=== PATIENT | male | born 1960 | race Caucasian/White ===

== ENCOUNTER 2019-02-26 15:23 | Inpatient (IN) ==
[2019-02-26] MEDS ORDERED: NORMAL SALINE 1,000 ML IV ONE ×2 (15:44→16:44)
--- NOTE | 2019-02-26 15:52 | ERNOTE ---
Dizziness ER Record Date of Service: 02/26/19 Presenting Symptoms: near-fainting, other - hypotension Time Seen by Provider: 02/26/19 15:30 Source: patient, family Exam Limitations: no limitations Immunizations: IMMUNIZATION HX Immunizations Up to Date Yes History of Influenza Vaccine No Hx Pneumococcal Vaccination No Allergies/Adverse Reactions: Allergies Allergy/AdvReac Type Severity Reaction Status Date / Time No Known Allergies Allergy Verified 02/26/19 14:58 Home Medications: HOME MEDICATIONS Levothyroxine Sodium [Synthroid] 137 mcg PO DAILY 04/25/15 [Last Taken Unknown] benzonatate 200 mg capsule 200 mg PO TID PRN #15 cap 02/25/19 [Last Taken Unknown] prednisone 20 mg tablet 40 mg PO DAILY 5 Days #10 tab 02/25/19 [Last Taken Unknown] - History of Present Illness Narrative: Patient reports 10 days ago he was diagnosed with influenza and took about 2 days of tamiflu and then stopped taking due to hallucinations. Since that time he has felt weak, puny with a low blood pressure. Has been back to the clinic and they did not find anything acute. Today around 1100 he had fever/chills with dizziness. Tried to drink some water and then vomited. After work he continually felt very weak so came to the ER for evaluation. Date (Duration): 02/16/19 Timing and Duration: still present Episodes lasting:: 10 days Severity: max: severe Severity: currently: moderate Associated Symptoms: Present: nausea, vomiting, light headedness Decreased ability to stand/walk:: Present: weak Usually:: Present: walks w/o assistance Modifying Factors - (Improves): Reports: nothing Modifying Factors - (Worsens): Reports: standing position Prior Treament: Reports: recently seen, treated by physician, similar symptoms before Review of Systems - Review of Systems Constitutional: Present: fever, chills, weakness, fatigue, decreased activity level EYE: Present: no symptoms reported ENT: Present: no symptoms reported Respiratory: Present: no symptoms reported Cardiology: Present: no symptoms reported Gastrointestinal/Abdominal: Present: nausea, vomiting. Absent: abdominal pain Genitourinary: Present: no symptoms reported Musculoskeletal: Present: other - body aches. Skin: Present: no symptoms reported Neurological: Present: dizziness/light-headedness, weakness. Absent: headache Endocrine: Present: no symptoms reported Hematologic/Lymphatic: Present: no symptoms reported Psych: Present: no symptoms reported Medical History (Updated 02/17/19 @ 16:34 by Mary Hector RN) Back pain Onset Date: Unknown Colonic polyp Onset Date: 2008 Familial adenomatous polyposis Onset Date: 07/07/15 Hyperlipidemia Onset Date: 04/06/11 Hypothyroidism Onset Date: 07/07/15 Hemorrhoids Onset Date: Unknown internal History of thyroid cancer Onset Date: 07/07/15 Surgical History: Surgical History (Updated 02/17/19 @ 16:34 by Mary Hector RN) H/O endoscopy Onset Date: 06/2015 H/O flexible sigmoidoscopy Onset Date: 06/2015 H/O thyroidectomy Onset Date: 06/23/14 [facility] History of colectomy Onset Date: 07/07/15 History of colon surgery Onset Date: 08/2011 Hx of appendectomy Onset Date: 1998 colonoscopy with hot biopsy Onset Date: 07/01/15 05/04/10 Family History: Family History (Updated 02/17/19 @ 16:47 by Mary Hector RN) Mother Diabetes Benign polyp of large intestine Father Hypertension Social History: Preferred Language Yoruba Smoking Status Never smoker Alcohol Use sober Drug Use none (Last Updated 02/25/19 @ 11:07 by Kalli Rogel DNP) No Social History Section defined Physical Exam - Physical Exam General Appearance: Present: wd/wn, alert Head Exam: Present: normal inspection, no evidence of injury Eye Exam: Normal inspection: bilateral, PERRL: bilateral, EOMI: bilateral Ears, Nose, Throat: Present: normal ENT inspection, normal pharynx, dry mucous membranes Neck: Present: normal inspection, nontender, supple. Absent: carotid bruit Respiratory: Present: no respiratory distress, normal breath sounds, no accessory muscle use, lungs clear Cardiovascular/Chest: Present: regular rate, rhythm, systolic murmur Peripheral Pulses: N=norm/S=strong/W=weak/B=bound/A=absent: Radial (R): Normal, Radial (L): Normal, Dorsalis-pedis (R): Normal, Dorsalis-pedis (L): Normal Gastrointestinal/Abdominal: Present: normal bowel sounds, nontender, nondistended, soft, no organomegaly Back Exam: Present: no CVA tenderness, no vertebral tenderness Extremity Exam: Present: non-tender, normal range of motion, no edema Neurological Exam: Present: alert, oriented, normal mood/affect, no motor/sensory deficits Skin Exam: Present: normal color, warm/dry Progress - Results and Orders Patient's Lab Results:: I have reviewed the patient's lab results. - Vital Signs Patient's Vital Signs:: I have reviewed the patient's vital signs. Vital Signs: Vital Signs 02/26/19 15:23 Temperature 38.0 C Pulse Rate 87 Respiratory Rate 20 Blood Pressure 89/52 L O2 Sat by Pulse Oximetry 98 - EKG EKG #1 EKG: NSR EKG read: Interp. by me - X-Ray X-Ray #1 X-Ray: chest - LLL consolidation. Interpretation: Interp. by me - Progress/Reassessment Chief Complaint: Dizziness Progress:: Improved - Transfer of Care Additional Notes: Discussed patient with Dr. Paredes who agrees with admit. Suggested inpatient due to hypotension with complications from influenza. Will treat with levaquin renal dosed daily. Patient did receive cefepime 2 gm IV before we changed our antibiotic regimen. Departure Clinical Impression: Pneumonia and influenza, Neutrophilic leukocytosis Hypotension Qualifiers: Hypotension type: unspecified hypotension type Qualified Code(s): I95.9 - Hypotension, unspecified - Departure Disposition: Still a patient Condition: Stable Referrals: Sha Steven MD [Primary Care Provider] -
[2019-02-26 16:05] LABS: Hematocrit 33.7 % (42.0-52.0); Hemoglobin 11.5 gm/dL (13.5-18.0); Mean Cell Volume 91.6 fl (78-100); Mean Corpuscular Hemoglobin 31.3 pg (27-31); Mean Corpuscular Hgb Conc 34.1 g/dl (32-36); Mean Platelet Volume 10.3 fl (8-11.3); Neutrophil # 16.9 K/mm3 (1.3-6.0); Neutrophil % 87.8 % (42-75.0); Platelet Count 311 K/mm3 (150-450); Red Blood Count 3.68 M/mm3 (4.7-6.0); Red Cell Distribution Width 12.1 % (11.5-14.0); White Blood Count 19.3 K/mm3 (4.0-10.5)
[2019-02-26 16:21] LABS: ALT 60 U/L (19-67); AST 29 U/L (0-48); Albumin * 2.7 gm/dl (3.4-5.0); Alkaline Phosphatase * 125 U/L (50-170); Anion Gap 14.9 mmol/L (6.8-13.8); BUN/Creatinine Ratio 18.3 (9.0-21.6); Bilirubin, Total 0.5 mg/dL (0.0-1.1); Blood Urea Nitrogen 31 mg/dL (6-23); Ca. Corrected For Albumin 9.4 mg/dL (8.4-10.2); Calcium * 8.7 mg/dL (7.9-10.9); Carbon Dioxide 23.6 mmol/L (24-32.6); Chloride 99 mmol/L (97-106); Glucose * 113 mg/dL (70-110); Potassium 3.5 mmol/L (3.4-4.6); Sodium 134 mmol/L (132-142); TSH * 2.778 uIU/mL (0.358-3.74); Total Protein 6.4 gm/dL (6.2-8.2)
[2019-02-26 16:22] LABS: Troponin I Less than 0.017 ng/mL (0.00-0.10)
[2019-02-26] MEDS ORDERED: ACETAMINOPHEN 325 MG TABLET PO ONE (16:59)
[2019-02-26] MEDS ORDERED: CEFEPIME HCL 1 GM/100 ML BAG IV ONE ×2 (17:23→18:00)
[2019-02-26] MEDS ORDERED: VANCOMYCIN HCL 1 GM in DEXTROSE 5 % IN WATER 250 ML IV ONE ×2 (17:24)
[2019-02-26] MEDS ORDERED: ONDANSETRON HCL/PF 2 MG/ML VIAL IV PRN (17:35)
[2019-02-26] MEDS ORDERED: LEVOFLOXACIN IN DEXTROSE 5 % 500 MG/100 ML BAG IV SCH (17:45)
[2019-02-26] MEDS ORDERED: CEFEPIME HCL 2 GM in DEXTROSE 5 % IN WATER 100 ML IV SCH ×2 (18:00)
[2019-02-26] MEDS ORDERED: NORMAL SALINE 1,000 ML IV PRN ×2 (18:48→19:35)
[2019-02-26 19:15] LABS: Urine Bilirubin Negative (NEGATIVE); Urine Blood Negative /ul (NEGATIVE); Urine Ketone Negative (NEGATIVE); Urine Nitrite Negative (NEGATIVE); Urine Protein Negative (NEGATIVE); Urine Specific Gravity <=1.005 SP.GR. (1.005-1.030); Urine Urobilinogen Normal (NORMAL); Urine pH 5.5 pH (5.0-7.0)
[2019-02-26 19:31] LABS: Urine Appearance Clear (CLEAR); Urine Color Yellow; Urine RBC None Seen /hpf (0-5); Urine WBC None Seen /hpf (0-5)
[2019-02-26 19:32] LABS: Urine Bacteria 1+; Urine Fine Granular Cast TRACE /LPF; Urine Hyaline Cast TRACE /LPF
--- NOTE | 2019-02-26 19:35 | HP ---
Chief Complaint - Chief Complaint Date of Service: 02/26/19 Time of Service: 19:14 Chief Complaint: I have got cough fever and chills for over a week History of Present Illness: 58-year-old male with past medical history of familial adenomatous polyposis, thyroid cancer, hyperlipidemia, hypothyroidism, and hemorrhoids was evaluated in our ER for worsening productive cough accompanied by fever, chills, and generalized weakness of several days' duration. Patient reports that he has been feeling ill for more than 10 days and was evaluated in our clinic by his primary care doctor who diagnosed him with influenza and prescribed Tamiflu which the patient did not complete due to side effects such as hallucinations and inability to fall asleep. However patient reports that his symptoms of fever cough and chills worsened and he eventually became weak and unable to tolerate liquids and solids by mouth. Patient reports an episode of fever this past Sunday greater than 103 degrees and several episodes of nonbloody vomiting throughout the past several days. This morning patient attempted to return to work but once he arrived he felt severely weak and started having chills that required him to wear his coat in front of an electric heater. He then attempted to eat his lunch and to hydrate himself orally but vomited, he subsequently became very dizzy. Patient then called his and told her to come pick him up to take him to the hospital. Medical History (Updated 02/26/19 @ 17:41 by DILIA Brown) Back pain Onset Date: Unknown Colonic polyp Onset Date: 2008 Familial adenomatous polyposis Onset Date: 07/07/15 Hyperlipidemia Onset Date: 04/06/11 Hypothyroidism Onset Date: 07/07/15 Hemorrhoids Onset Date: Unknown internal History of thyroid cancer Onset Date: 07/07/15 Surgical History: Surgical History (Updated 02/17/19 @ 16:34 by Mary Hector RN) H/O endoscopy Onset Date: 06/2015 H/O flexible sigmoidoscopy Onset Date: 06/2015 H/O thyroidectomy Onset Date: 06/23/14 [facility] History of colectomy Onset Date: 07/07/15 History of colon surgery Onset Date: 08/2011 Hx of appendectomy Onset Date: 1998 colonoscopy with hot biopsy Onset Date: 07/01/15 05/04/10 Family History: Family History (Updated 02/17/19 @ 16:47 by Mary Hector RN) Mother Diabetes Benign polyp of large intestine Father Hypertension Social History: Patient Lives/Resources Home Utilized 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 Smoking Status Never smoker Have you smoked in the past 12 No months Do you dip or chew tobacco No Alcohol Use sober Drug Use none (Last Updated 02/25/19 @ 11:07 by Kalli Rogel DNP) No Social History Section defined Review Of Systems (GEN) - Review of Systems Generalized/Overall Review: Present: Weakness, Chills, Fever, Malaise, Fatigue EENTM: Present: No Symptoms Reported Respiratory: Present: Cough - Productive cough of brownish then whitish milky sputum Cardiac: Present: No Symptoms Reported Abdominal: Present: No Symptoms Reported Genitourinary: Present: No Symptoms Reported Musculoskeletal: Present: No Symptoms Reported Neurological: Present: No Symptoms Reported Skin: Present: Rash - Scattered nonerythematous maculopapular rash on back Endocrine: Present: No Symptoms Reported Immunizations: IMMUNIZATION HX Immunizations Up to Date Yes History of Influenza Vaccine No Hx Pneumococcal Vaccination No Allergies/Adverse Reactions: Allergies Allergy/AdvReac Type Severity Reaction Status Date / Time No Known Allergies Allergy Verified 02/26/19 14:58 Home Medications: HOME MEDICATIONS Levothyroxine Sodium [Synthroid] 137 mcg PO DAILY 04/25/15 [Last Taken Unknown] benzonatate 200 mg capsule 200 mg PO TID PRN #15 cap 02/25/19 [Last Taken Unknown] prednisone 20 mg tablet 40 mg PO DAILY 5 Days #10 tab 02/25/19 [Last Taken Unknown] Exam - Exam Vital Signs: Vital Signs - Last Taken Temp 37.4 C 02/26/19 18:21 Pulse 95 02/26/19 18:21 Resp 16 02/26/19 18:21 BP 111/65 02/26/19 18:21 Pulse Ox 95 02/26/19 18:21 Constitutional: Present: Alert, Oriented x3, Cooperative, Well developed, Well nourished, No distress, Middle aged ENT Exam: Present: normal ENT inspection, hearing grossly normal, pharynx normal, TMs normal Eye Exam: bilateral eye: normal inspection, PERRL, EOMI Neck: Present: non-tender, full range of motion, supple, normal inspection, trachea midline Back Exam: Present: normal inspection, no CVA tenderness, no vertebral tenderness Breasts: Present: Exam deferred Respiratory: Present: no respiratory distress, decreased breath sounds - Decr eased breath sounds on left lower lobe Cardiovascular/Chest: Present: normal peripheral pulses, regular rate, rhythm, no chest tenderness, no edema, no gallop, no JVD, no murmur, no rub Peripheral Pulses: carotid (R): 4+, carotid (L): 4+, femoral (R): 4+, femoral (L): 4+, dorsalis-pedis (R): 4+, dorsalis-pedis (L): 4+ Abdomen: Present: Normal bowel sounds, soft, nontender, nondistended, no rebound tenderness, no hepatospenomegaly, no masses /Rectal: Present: Exam deferred Extremity: Present: normal range of motion, non-tender, normal inspection, no pedal edema, no calf tenderness, normal capillary refill, pelvis stable Skin Exam: Present: skin rash - Nonerythematous maculopapular rash on back Lymphatic: Present: no adenopathy Neurologic: Present: molder machine II-XII nml as tested, normal cerebellar test, no motor/sensory deficits, alert, normal mood/affect, oriented x 3 Appearance: Present: appropriate appearance, appropriate insight, neat, no memory impairment Eye contact: Present: cooperative Thoughts: Present: normal thought pattern, no apparent hallucination Diagnostic Studies: Abnormal Lab Results 02/26/19 02/26/19 Range/Units 15:50 15:50 WBC 19.3 H (4.0-10.5) K/mm3 RBC 3.68 L (4.7-6.0) M/mm3 Hgb 11.5 L (13.5-18.0) gm/dL Hct 33.7 L (42.0-52.0) % MCH 31.3 H (27-31) pg Immature Gran % (Auto) 1.50 H (0.001-0.429) % Immature Gran # (Auto) 0.29 H (0.000-0.0310) K/mm3 Neutrophils % 87.8 H (42-75.0) % Lymphocytes % 5.0 L (20-51) % Neutrophils # 16.9 H (1.3-6.0) K/mm3 Lymphocytes # 0.96 L (1.5-3.5) k/mm3 Monocytes # 1.1 H (0.0-1.0) k/mm3 Carbon Dioxide 23.6 L (24-32.6) mmol/L Anion Gap 14.9 H (6.8-13.8) mmol/L BUN 31 H (6-23) mg/dL Creatinine 1.69 H (0.4-1.4) mg/dL Est GFR (Non-Af Amer) 44 L (60-130) mL/min Random Glucose 113 H (70-110) mg/dL Albumin 2.7 L (3.4-5.0) gm/dl Laboratory Results WBC 19.3 K/mm3 (4.0-10.5) H 02/26/19 15:50 RBC 3.68 M/mm3 (4.7-6.0) L 02/26/19 15:50 Hgb 11.5 gm/dL (13.5-18.0) L 02/26/19 15:50 Hct 33.7 % (42.0-52.0) L 02/26/19 15:50 MCV 91.6 fl (78-100) 02/26/19 15:50 MCH 31.3 pg (27-31) H 02/26/19 15:50 MCHC 34.1 g/dl (32-36) 02/26/19 15:50 RDW 12.1 % (11.5-14.0) 02/26/19 15:50 Plt Count 311 K/mm3 (150-450) 02/26/19 15:50 MPV 10.3 fl (8-11.3) 02/26/19 15:50 Immature Gran % (Auto) 1.50 % (0.001-0.429) H 02/26/19 15:50 Immature Gran # (Auto) 0.29 K/mm3 (0.000-0.0310) H 02/26/19 15:50 87.8 % (42-75.0) H 02/26/19 15:50 5.0 % (20-51) L 02/26/19 15:50 5.5 % (0.0-9) 02/26/19 15:50 0.1 % (0.0-3.0) 02/26/19 15:50 0.1 % (0.0-1.0) 02/26/19 15:50 Nucleated RBC % 0.0 k/mm3 (0-1) 02/26/19 15:50 16.9 K/mm3 (1.3-6.0) H 02/26/19 15:50 0.96 k/mm3 (1.5-3.5) L 02/26/19 15:50 1.1 k/mm3 (0.0-1.0) H 02/26/19 15:50 0.0 k/mm3 (0.0-0.7) 02/26/19 15:50 Absolute Basophils 0.0 k/mm3 (0.0-0.1) 02/26/19 15:50 Sodium 134 mmol/L (132-142) 02/26/19 15:50 134 mmol/L (130-142) 02/26/19 15:50 Potassium 3.5 mmol/L (3.4-4.6) 02/26/19 15:50 Chloride 99 mmol/L (97-106) 02/26/19 15:50 Carbon Dioxide 23.6 mmol/L (24-32.6) L 02/26/19 15:50 14.9 mmol/L (6.8-13.8) H 02/26/19 15:50 BUN 31 mg/dL (6-23) H 02/26/19 15:50 1.69 mg/dL (0.4-1.4) H 02/26/19 15:50 Est GFR (Non-Af Amer) 44 mL/min (60-130) L 02/26/19 15:50 18.3 (9.0-21.6) 02/26/19 15:50 113 mg/dL (70-110) H 02/26/19 15:50 1.4 mmol/L (0.4-2.0) 02/26/19 15:50 Calcium 8.7 mg/dL (7.9-10.9) 02/26/19 15:50 Calcium Adj for Albumin 9.4 mg/dL (8.4-10.2) 02/26/19 15:50 0.5 mg/dL (0.0-1.1) 02/26/19 15:50 AST 29 U/L (0-48) 02/26/19 15:50 ALT 60 U/L (19-67) 02/26/19 15:50 125 U/L (50-170) 02/26/19 15:50 Less than 0.017 ng/mL (0.00-0.10) 02/26/19 15:50 6.4 gm/dL (6.2-8.2) 02/26/19 15:50 2.7 gm/dl (3.4-5.0) L 02/26/19 15:50 TSH 2.778 uIU/mL (0.358-3.74) 02/26/19 15:50 Assessment/Plan - Narrative Narrative: Patient was evaluated at bedside in medical chart was reviewed and decision to admit to inpatient medical surgical floor with a diagnosis of left-sided multifocal community-acquired pneumonia with dehydration was taken. Patient was found to be hypotensive requiring multiple IV boluses of IV fluid to sustain blood pressure, and was also found to have signs and symptoms of dehydration likely secondary to his poor oral intake over the past several days and multiple episodes of vomiting. Therefore we will continue to hydrate him intravenously. Patient was also found to have a leukocytosis with a left shift on labs so we will treat him with IV antibiotics to cover him for community-acquired pneumonia. All necessary cultures were ordered which include blood urine and sputum. Patient was administered acetaminophen for fever and has antitussives ordered for his cough. He was also prescribed oral steroids for a nonpruritic maculopapular rash on his back, therefore we will continue a course of steroids during his hospital stay. - Assessment/Plan (1) Multifocal pneumonia Problem: Acute (2) Dehydration, moderate Problem: Acute (3) Decreased oral intake Problem: Acute (4) Community acquired pneumonia Problem: Acute (5) TOYA (acute kidney injury) Problem: Acute
[2019-02-26] MEDS: PANTOPRAZOLE SODIUM 20 MG TABLET.DR PO SCH (20:26)
[2019-02-26] MEDS: ENOXAPARIN SODIUM 40 MG/0.4 ML SYRG SC SCH (20:27)
[2019-02-27] MEDS: ACETAMINOPHEN 500 MG TABLET PO PRN (03:31)
[2019-02-27 05:19] LABS: Hematocrit 31.5 % (42.0-52.0); Hemoglobin 10.5 gm/dL (13.5-18.0); Mean Cell Volume 92.9 fl (78-100); Mean Corpuscular Hgb Conc 33.3 g/dl (32-36); Mean Platelet Volume 9.9 fl (8-11.3); Neutrophil # 17.5 K/mm3 (1.3-6.0); Neutrophil % 88.8 % (42-75.0); Platelet Count 289 K/mm3 (150-450); Red Blood Count 3.39 M/mm3 (4.7-6.0); Red Cell Distribution Width 12.6 % (11.5-14.0); White Blood Count 19.7 K/mm3 (4.0-10.5)
[2019-02-27 05:33] LABS: Albumin * 2.1 gm/dl (3.4-5.0); BUN/Creatinine Ratio 17.1 (9.0-21.6); Bilirubin, Total 0.5 mg/dL (0.0-1.1); Calcium * 7.8 mg/dL (7.9-10.9); Carbon Dioxide 24.7 mmol/L (24-32.6); Potassium 4.7 mmol/L (3.4-4.6); Total Protein 5.5 gm/dL (6.2-8.2)
[2019-02-27] MEDS ORDERED: CEFEPIME HCL 2 GM in DEXTROSE 5 % IN WATER 100 ML IV SCH ×2 (06:00)
[2019-02-27] MEDS: PANTOPRAZOLE SODIUM 20 MG TABLET.DR PO SCH ×2 (06:57→21:03)
[2019-02-27] MEDS: LEVOTHYROXINE SODIUM 137 MCG TABLET PO SCH (06:57)
[2019-02-27] MEDS ORDERED: NORMAL SALINE 1,000 ML IV PRN (09:13)
[2019-02-27] MEDS: DOCUSATE SODIUM 100 MG CAPSULE PO SCH (09:14)
[2019-02-27] MEDS: predniSONE 20 MG TABLET PO SCH (09:14)
[2019-02-27] MEDS ORDERED: HYDROcodone/ACETAMINOPHEN 1 EACH TABLET PO PRN (09:29)
--- NOTE | 2019-02-27 11:51 | HP ---
Chief Complaint - Chief Complaint Date of Service: 02/27/19 Time of Service: 08:45 Chief Complaint: Profound weakness History of Present Illness: 58-year-old male with past medical history of familial adenomatous polyposis with a partial colectomy in 2010, thyroid cancer, hyperlipidemia, hypothyroidism, and hemorrhoids was evaluated in our ER for worsening productive cough accompanied by fever, chills, and generalized weakness. This illness began 10 February. At that time he did have extreme malaise, a cough productive of clear to cloudy phlegm, headache, fever up to 103, severe chills and sweats. He has been in our walk-in clinic 3 times since the first time was the beginning of the second week of February, he was diagnosed with influenza A which his also had and given treatment with Tamiflu. His and he both developed a petechial rash, that was initially itching but not now. He was given prednisone at his walk-in clinic visit of 2 days ago. 2 days after he started the Tamiflu, he began to have hallucinations. He remained ill overall this time unable to go to work. He was most recently in our walk-in clinic 2 days ago, because yesterday he tried to go to work. Around 11 AM he became so lightheaded he co uld not see straight. He was unable to walk without assistance. His temperature was back up to 103 degrees. He was having severe chills so that he wore a coat and sat in front of a heater. He was also having hot sweats. He eventually became weak and unable to tolerate liquids and solids by mouth. Patient reports an episode of fever this past Sunday greater than 103 degrees and several episodes of nonbloody vomiting throughout the past several days. Patient then called his and told her to come pick him up to take him to the hospital. After being so ill yesterday, his brought him to the emergency room, where left lower lobe pneumonia and influenza A was diagnosed he was also thought to be dehydrated, and he has had 3 L of IV fluids. This morning he is generally feeling better, but he still has hot and cold spells and he is still coughing up phlegm which remains cloudy to clear. He feels as if he can begin to move around without passing out. Medical History (Updated 02/26/19 @ 19:34 by Saima Paredes MD) Back pain Onset Date: Unknown Colonic polyp Onset Date: 2008 Familial adenomatous polyposis Onset Date: 07/07/15 Hyperlipidemia Onset Date: 04/06/11 Hypothyroidism Onset Date: 07/07/15 Hemorrhoids Onset Date: Unknown internal History of thyroid cancer Onset Date: 07/07/15 Surgical History: Surgical History (Updated 02/26/19 @ 19:34 by Saima Paredes MD) H/O endoscopy Onset Date: 06/2015 H/O flexible sigmoidoscopy Onset Date: 06/2015 H/O thyroidectomy Onset Date: 06/23/14 [facility] History of colectomy Onset Date: 07/07/15 History of colon surgery Onset Date: 08/2011 Hx of appendectomy Onset Date: 1998 colonoscopy with hot biopsy Onset Date: 07/01/15 05/04/10 Family History: Family History (Updated 02/17/19 @ 16:47 by Mary Hector RN) Mother Diabetes Benign polyp of large intestine Father Hypertension Social History: Patient Lives/Resources Home Utilized 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 Smoking Status Never smoker Have you smoked in the past 12 No months Do you dip or chew tobacco No Alcohol Use sober Drug Use none (Last Updated 02/25/19 @ 11:07 by Kalli Rogel DNP) No Social History Section defined Review Of Systems (GEN) - Review of Systems Generalized/Overall Review: Present: Chills, Fever, Malaise, Diaphoresis, Fatigue, Weight loss EENTM: Present: Blurred Vision. Absent: Eye Pain Respiratory: Present: Cough, Other - Dyspnea on exertion. Absent: Orthopnea, Wheezing Cardiac: Absent: Chest Pain, Edema, Palpitations Abdominal: Present: No Symptoms Reported, Nausea, Vomiting, Abdominal Pain, Diarrhea - Briefly. Absent: Hematemesis, Melena, Bright blood from rectum Genitourinary: Absent: Burning, Urgency Musculoskeletal: Present: Muscle Pain Neurological: Present: Headache. Absent: Anxiety, Depressed Skin: Present: Rash. Absent: Lesions Endocrine: Present: Excessive Sweating, Other - Severe chills Immunizations: IMMUNIZATION HX Immunizations Up to Date Yes History of Influenza Vaccine No Hx Pneumococcal Vaccination No Allergies/Adverse Reactions: Allergies Allergy/AdvReac Type Severity Reaction Status Date / Time No Known Allergies Allergy Verified 02/26/19 14:58 Home Medications: HOME MEDICATIONS Levothyroxine Sodium [Synthroid] 137 mcg PO DAILY 04/25/15 [Last Taken Unknown] benzonatate 200 mg capsule 200 mg PO TID PRN #15 cap 02/25/19 [Last Taken Unkno wn] prednisone 20 mg tablet 40 mg PO DAILY 5 Days #10 tab 02/25/19 [Last Taken Unknown] Exam - Exam Vital Signs: Vital Signs - Last Taken Temp 36.4 C 02/27/19 10:26 Pulse 61 02/27/19 10:26 Resp 16 02/27/19 10:26 BP 115/68 02/27/19 10:26 Pulse Ox 98 02/27/19 10:26 Comprehensive Narrative: 02/27/19 11:41 I reviewed both his chest x-ray films and the chest x-ray report, which shows small patchy areas of pneumonia in the left lower lung. His white blood count yesterday was 19.3. This morning 19.7. Yesterday hemoglobin was 11.5 this morning 10.5. Yesterday he had 87% polyps and today 88.8. Yesterday his CO2 was 23.6, BUN 31, anion gap 19.9, creatinine 1.69, and albumin 2.7. This morning his albumin was 2.1, total protein 5.5, sodium 143, potassium 4.7, chloride 108, anion gap 15 and calcium 7.8. His urine was unremarkable. His temperature this morning was 36.7, pulse 68, blood pressure 107/70, respiratory rate 18 and O2 saturation 98% on room air. When I saw him this morning his fluid balance was approximately +1350 He was given IV cephalosporin in the emergency room, and now is on Levaquin daily. The plan for his abnormal blood work is to repeat it tomorrow morning. The plan for his low total protein and albumin is to provide nutritional supplements. We discussed all of this with him and with his who was on speaker phone. We answered all of their questions to their satisfaction. We explained about what is going on, what we plan to do and length of stay. Length of stay is uncertain and depends on how he progresses. Possibly tomorrow or the next day. Constitutional: Present: Alert, Oriented x3, Cooperative, Well developed, Well nourished, No distress ENT Exam: Present: normal ENT inspection, hearing grossly normal, pharynx normal, TMs normal Eye Exam: bilateral eye: normal inspection, PERRL, EOMI Neck: Present: normal inspection. Absent: lymphadenopathy (R), lymphadenopathy (L), thyromegaly Back Exam: Present: normal inspection, no CVA tenderness, no vertebral tenderness Breasts: Present: Exam deferred Respiratory: Present: lungs clear, no respiratory distress Cardiovascular/Chest: Present: normal peripheral pulses, regular rate, rhythm, no chest tenderness, no edema, no gallop, no JVD Peripheral Pulses: carotid (R): 1+, carotid (L): 1+, dorsalis-pedis (R): 1+, dorsalis-pedis (L): 1+, radial (R): 1+, radial (L): 1+ Abdomen: Present: Normal bowel sounds, soft, nontender, nondistended, no rebound tenderness, no hepatospenomegaly, no masses /Rectal: Present: Exam deferred, Other - Luciano catheter in place Extremity: Present: normal inspection, no pedal edema, no calf tenderness Skin Exam: Present: normal color, warm/dry, no cyanosis, skin rash - Petechiae on his chest and upper back. Mild. Neurologic: Present: normal mood/affect, oriented x 3. Absent: abnormal gait - He is Appearance: Present: appropriate appearance, appropriate insight, neat, no memory impairment Eye contact: Present: cooperative, good eye contact, normal speech Thoughts: Present: normal thought pattern, no apparent hallucination Diagnostic Studies: Abnormal Lab Results 02/26/19 02/26/19 02/26/19 Range/Units 15:50 15:50 19:07 WBC 19.3 H (4.0-10.5) K/mm3 RBC 3.68 L (4.7-6.0) M/mm3 Hgb 11.5 L (13.5-18.0) gm/dL Hct 33.7 L (42.0-52.0) % MCH 31.3 H (27-31) pg Immature Gran % (Auto) 1.50 H (0.001-0.429) % Immature Gran # (Auto) 0.29 H (0.000-0.0310) K/mm3 Neutrophils % 87.8 H (42-75.0) % Lymphocytes % 5.0 L (20-51) % Neutrophils # 16.9 H (1.3-6.0) K/mm3 Lymphocytes # 0.96 L (1.5-3.5) k/mm3 Monocytes # 1.1 H (0.0-1.0) k/mm3 Sodium (132-142) mmol/L Plasma Sodium (130-142) mmol/L Potassium (3.4-4.6) mmol/L Chloride (97-106) mmol/L Carbon Dioxide 23.6 L (24-32.6) mmol/L Anion Gap 14.9 H (6.8-13.8) mmol/L BUN 31 H (6-23) mg/dL Creatinine 1.69 H (0.4-1.4) mg/dL Est GFR (Non-Af Amer) 44 L (60-130) mL/min Random Glucose 113 H (70-110) mg/dL Calcium (7.9-10.9) mg/dL Total Protein (6.2-8.2) gm/dL Albumin 2.7 L (3.4-5.0) gm/dl Urine Bacteria 1+ H (NONE) 02/27/19 02/27/19 Range/Units 05:15 05:15 WBC 19.7 H (4.0-10.5) K/mm3 RBC 3.39 L (4.7-6.0) M/mm3 Hgb 10.5 L (13.5-18.0) gm/dL Hct 31.5 L (42.0-52.0) % MCH (27-31) pg Immature Gran % (Auto) 1.00 H (0.001-0.429) % Immature Gran # (Auto) 0.19 H (0.000-0.0310) K/mm3 Neutrophils % 88.8 H (42-75.0) % Lymphocytes % 6.0 L (20-51) % Neutrophils # 17.5 H (1.3-6.0) K/mm3 Lymphocytes # 1.19 L (1.5-3.5) k/mm3 Monocytes # (0.0-1.0) k/mm3 Sodium 143 H (132-142) mmol/L Plasma Sodium 143 H (130-142) mmol/L Potassium 4.7 H D (3.4-4.6) mmol/L Chloride 108 H (97-106) mmol/L Carbon Dioxide (24-32.6) mmol/L Anion Gap 15.0 H (6.8-13.8) mmol/L BUN (6-23) mg/dL Creatinine (0.4-1.4) mg/dL Est GFR (Non-Af Amer) (60-130) mL/min Random Glucose (70-110) mg/dL Calcium 7.8 L (7.9-10.9) mg/dL Total Protein 5.5 L (6.2-8.2) gm/dL Albumin 2.1 L (3.4-5.0) gm/dl Urine Bacteria (NONE) Microbiology 02/26/19 20:35 Sputum Culture - Preliminary Expectorate Sputum Laboratory Results WBC 19.7 K/mm3 (4.0-10.5) H 02/27/19 05:15 RBC 3.39 M/mm3 (4.7-6.0) L 02/27/19 05:15 Hgb 10.5 gm/dL (13.5-18.0) L 02/27/19 05:15 Hct 31.5 % (42.0-52.0) L 02/27/19 05:15 MCV 92.9 fl (78-100) 02/27/19 05:15 MCH 31.0 pg (27-31) 02/27/19 05:15 MCHC 33.3 g/dl (32-36) 02/27/19 05:15 RDW 12.6 % (11.5-14.0) 02/27/19 05:15 Plt Count 289 K/mm3 (150-450) 02/27/19 05:15 MPV 9.9 fl (8-11.3) 02/27/19 05:15 Immature Gran % (Auto) 1.00 % (0.001-0.429) H 02/27/19 05:15 Immature Gran # (Auto) 0.19 K/mm3 (0.000-0.0310) H 02/27/19 05:15 88.8 % (42-75.0) H 02/27/19 05:15 6.0 % (20-51) L 02/27/19 05:15 3.9 % (0.0-9) 02/27/19 05:15 0.2 % (0.0-3.0) 02/27/19 05:15 0.1 % (0.0-1.0) 02/27/19 05:15 Nucleated RBC % 0.0 k/mm3 (0-1) 02/27/19 05:15 17.5 K/mm3 (1.3-6.0) H 02/27/19 05:15 1.19 k/mm3 (1.5-3.5) L 02/27/19 05:15 0.8 k/mm3 (0.0-1.0) 02/27/19 05:15 0.0 k/mm3 (0.0-0.7) 02/27/19 05:15 Absolute Basophils 0.0 k/mm3 (0.0-0.1) 02/27/19 05:15 Sodium 143 mmol/L (132-142) H 02/27/19 05:15 143 mmol/L (130-142) H 02/27/19 05:15 Potassium 4.7 mmol/L (3.4-4.6) H D 02/27/19 05:15 Chloride 108 mmol/L (97-106) H 02/27/19 05:15 Carbon Dioxide 24.7 mmol/L (24-32.6) 02/27/19 05:15 15.0 mmol/L (6.8-13.8) H 02/27/19 05:15 BUN 22 mg/dL (6-23) 02/27/19 05:15 1.29 mg/dL (0.4-1.4) 02/27/19 05:15 Est GFR (Non-Af Amer) 60 mL/min (60-130) D 02/27/19 05:15 17.1 (9.0-21.6) 02/27/19 05:15 107 mg/dL (70-110) 02/27/19 05:15 1.4 mmol/L (0.4-2.0) 02/26/19 15:50 Calcium 7.8 mg/dL (7.9-10.9) L 02/27/19 05:15 Calcium Adj for Albumin 9.0 mg/dL (8.4-10.2) 02/27/19 05:15 0.5 mg/dL (0.0-1.1) 02/27/19 05:15 AST 29 U/L (0-48) 02/27/19 05:15 ALT 50 U/L (19-67) 02/27/19 05:15 108 U/L (50-170) 02/27/19 05:15 Less than 0.017 ng/mL (0.00-0.10) 02/26/19 15:50 5.5 gm/dL (6.2-8.2) L 02/27/19 05:15 2.1 gm/dl (3.4-5.0) L 02/27/19 05:15 TSH 2.778 uIU/mL (0.358-3.74) 02/26/19 15:50 Yellow 02/26/19 19:07 Clear (CLEAR) 02/26/19 19:07 5.5 pH (5.0-7.0) 02/26/19 19:07 Ur Specific [place] <=1.005 SP.GR. (1.005-1.030) 02/26/19 19:07 Negative mg/dL (NEGATIVE) 02/26/19 19:07 Negative mg/dL (NEGATIVE) 02/26/19 19:07 Negative mg/dL (NEGATIVE) 02/26/19 19:07 Negative /ul (NEGATIVE) 02/26/19 19:07 Negative (NEGATIVE) 02/26/19 19:07 Negative mg/dl (NEGATIVE) 02/26/19 19:07 Normal EU/dl (NORMAL) 02/26/19 19:07 Ur Leukocyte Esterase Negative /ul (NEGATIVE) 02/26/19 19:07 None seen /hpf (0-5) 02/26/19 19:07 None seen /hpf (0-5) 02/26/19 19:07 Ur Epithelial Cells Trace /hpf (0-5) 02/26/19 19:07 1+ (NONE) H 02/26/19 19:07 Hyaline Casts Trace /LPF (NONE) 02/26/19 19:07 Fine Granular Casts Trace /LPF (NONE) 02/26/19 19:07 No culture indicated 02/26/19 19:07 Assessment/Plan - Assessment/Plan (1) Pneumonia and influenza Assessment: We will follow lab work. We will continue Levaquin. We will work on ambulation and nutrition improvement. Problem: Acute (2) Dehydration, moderate Problem: Acute (3) Decreased oral intake Problem: Acute (4) Community acquired pneumonia Problem: Acute Qualifiers: Laterality: left Lung location: lower lobe of lung Qualified Code(s): J18.1 - Lobar pneumonia, unspecified organism (5) Vomiting Problem: Acute Qualifiers: Vomiting type: unspecified Vomiting Intractability: non-intractable Nausea presence: with nausea Qualified Code(s): R11.2 - Nausea with vomiting, unspecified (6) Weakness Problem: Acute (7) Hypotension Problem: Acute Qualifiers: Hypotension type: hypotension due to hypovolemia Qualified Code(s): I95.89 - Other hypotension; E86.1 - Hypovolemia
[2019-02-27] MEDS: BENZONATATE 100 MG CAPSULE PO PRN (11:52)
[2019-02-27] MEDS: ENOXAPARIN SODIUM 40 MG/0.4 ML SYRG SC SCH (21:03)
[2019-02-28] MEDS: BENZONATATE 100 MG CAPSULE PO PRN (01:22)
[2019-02-28 05:12] LABS: Hematocrit 32.2 % (42.0-52.0); Hemoglobin 10.7 gm/dL (13.5-18.0); Mean Cell Volume 93.1 fl (78-100); Mean Corpuscular Hemoglobin 30.9 pg (27-31); Mean Corpuscular Hgb Conc 33.2 g/dl (32-36); Mean Platelet Volume 9.9 fl (8-11.3); Neutrophil # 11.6 K/mm3 (1.3-6.0); Neutrophil % 83.2 % (42-75.0); Platelet Count 309 K/mm3 (150-450); Red Blood Count 3.46 M/mm3 (4.7-6.0); Red Cell Distribution Width 12.6 % (11.5-14.0); White Blood Count 13.9 K/mm3 (4.0-10.5)
[2019-02-28 05:31] LABS: Albumin * 2.2 gm/dl (3.4-5.0); Anion Gap 14.1 mmol/L (6.8-13.8); BUN/Creatinine Ratio 15.7 (9.0-21.6); Bilirubin, Total 0.2 mg/dL (0.0-1.1); Ca. Corrected For Albumin 9.2 mg/dL (8.4-10.2); Calcium * 8.1 mg/dL (7.9-10.9); Carbon Dioxide 26.3 mmol/L (24-32.6); Potassium 4.4 mmol/L (3.4-4.6); Total Protein 5.7 gm/dL (6.2-8.2)
[2019-02-28] MEDS: ACETAMINOPHEN 500 MG TABLET PO PRN (07:51)
[2019-02-28] MEDS: PANTOPRAZOLE SODIUM 20 MG TABLET.DR PO SCH (07:51)
[2019-02-28] MEDS: LEVOTHYROXINE SODIUM 137 MCG TABLET PO SCH (07:51)
[2019-02-28] MEDS: DOCUSATE SODIUM 100 MG CAPSULE PO SCH (08:25)
[2019-02-28] MEDS: predniSONE 20 MG TABLET PO SCH (08:25)
[2019-02-28] MEDS ORDERED: LEVOFLOXACIN 750 MG TABLET PO SCH (11:00)
[2019-02-28 11:32] VITALS: BP 103/71
--- NOTE | 2019-02-28 11:52 | DS ---
(1) Pneumonia and influenza Diagnosis(s): Sputum and urine cultures no growth preliminary. Urinalysis was normal. We will repeat a CBC and BMP in 5 days. In 5 days we will also workup his anemia which is normocytic normochromic. Problem: Acute (2) Dehydration, moderate Problem: Resolved (3) Decreased oral intake Problem: Resolved (4) Community acquired pneumonia Problem: Acute Qualifiers: Laterality: left Lung location: lower lobe of lung Qualified Code(s): J18.1 - Lobar pneumonia, unspecified organism (5) Vomiting Problem: Resolved Qualifiers: Vomiting type: unspecified Vomiting Intractability: non-intractable Nausea presence: with nausea Qualified Code(s): R11.2 - Nausea with vomiting, unspecified (6) Weakness Problem: Resolved (7) Hypotension Problem: Resolved Qualifiers: Hypotension type: hypotension due to hypovolemia Qualified Code(s): I95.89 - Other hypotension; E86.1 - Hypovolemia (8) Anemia Problem: Chronic Qualifiers: Anemia type: unspecified type Qualified Code(s): D64.9 - Anemia, unspecified (9) Hypoalbuminemia Diagnosis(s): We will investigate as an outpatient Problem: Acute Description of Stay: 58-year-old male with past medical history of familial adenomatous polyposis with a partial colectomy in 2010, thyroid cancer, hyperlipidemia, hypothyroidism, and hemorrhoids was evaluated in our ER for worsening productive cough accompanied by fever, chills, and generalized weakness. This illness began 10 February. At that time he did have extreme malaise, a cough productive of clear to cloudy phlegm, headache, fever up to 103, severe chills and sweats. He has been in our walk-in clinic 3 times since, the first time was the beginning of the second week of February, he was diagnosed with influenza A which his also had and given treatment with Tamiflu. His and he both developed a petechial rash, that was initially itching but not now. His rash is clearing nicely. He was given prednisone at his walk-in clinic visit of 3 days ago. 2 days after he started the Tamiflu, he began hallucinations. He remained ill over all this time unable to go to work. He was most recently in our walk-in clinic 3 days ago. 3 days ago he tried to go back to work. Around 11 AM he became so lightheaded he could not see straight. He was unable to walk without assistance. His temperature was back up to 103 degrees. He was having severe chills so that he wore a coat and sat in front of a heater. He was also having hot sweats. He eventually became weak and unable to tolerate liquids and solids by mouth. Patient reports an episode of fever last Sunday greater than 103 degrees and several episodes of nonbloody vomiting throughout the past several days. He steadily worsened over this last week. At work 3 days ago the patient called his and told her to come pick him up to take him to the hospital. After being so ill , his brought him to the emergency room, where left lower lobe pneumonia and influenza A was diagnosed. He was also thought to be dehydrated, and he has had 3 L of IV fluids. This morning he is generally feeling better, but he still has hot and cold spells and he is still coughing up phlegm which remains cloudy to clear. He is able to tolerate food, he does not feel lightheaded and he can walk in the halls by himself without difficulty. There is no nausea or diarrhea. On 02/26 his white blood count was 19.3, 02/27 19.7 and today 13.9. On 02/26 he had 87.8% polys, 02/27 88.8%, and today 83.2%. On 02/26 his hemoglobin was 11.5, 02/27 10.5 and today 10.7. He has normal red blood cell indices. On 02/26 his sodium was 134, potassium 3.5, chloride 99 and CO2 26. Today sodium 143, potassium 4.4, chloride 107 and CO2 26.3 On 02/26 his albumin was 2.7, 02/27 2.1, and today 2.2 His admission urinalysis was normal. His urine and sputum cultures are still pending for final report. His admission temperature was 37, pulse 77, BP 112/88, respiratory rate 16 and room air O2 saturation 95%. This morning his temperature was 36.5, pulse rate 85, BP 103/71, respiratory rate 16, and room air O2 sat 97%. Procedures Performed: none Results and Findings: Pending Mircobiology Results 02/26/19 20:35 Expectorate Sputum Sputum Culture - Preliminary No Pathogens Isolated 02/26/19 16:55 Blood Blood Culture - Preliminary NO GROWTH 24 HOURS 02/26/19 15:50 Blood Blood Culture - Preliminary NO GROWTH 24 HOURS Lab Pending Results 02/26/19 15:50: WBC 19.3 H, RBC 3.68 L, Hgb 11.5 L, Hct 33.7 L, MCV 91.6, MCH 31.3 H, MCHC 34.1, RDW 12.1, Plt Count 311, MPV 10.3, Immature Gran % (Auto) 1.50 H, Immature Gran # (Auto) 0.29 H, Neutrophils % 87.8 H, Lymphocytes % 5.0 L, Monocytes % 5.5, Eosinophils % 0.1, Basophils % 0.1, Nucleated RBC % 0.0, Neutrophils # 16.9 H, Lymphocytes # 0.96 L, Monocytes # 1.1 H, Eosinophils # 0.0, Absolute Basophils 0.0 02/26/19 15:50: Sodium 134, Plasma Sodium 134, Potassium 3.5, Chloride 99, Carbon Dioxide 23.6 L, Anion Gap 14.9 H, BUN 31 H, Creatinine 1.69 H, Est GFR (Non-Af Amer) 44 L, BUN/Creatinine Ratio 18.3, Random Glucose 113 H, Calcium 8.7, Calcium Adj for Albumin 9.4, Total Bilirubin 0.5, AST 29, ALT 60, Alkaline Phosphatase 125, Troponin I Less than 0.017, Total Protein 6.4, Albumin 2.7 L, TSH 2.778 02/26/19 15:50: Lactic Acid, Venous 1.4 02/26/19 19:07: Urine Color Yellow, Urine Appearance Clear, Urine pH 5.5, Ur Specific [place] <=1.005, Urine Protein Negative, Urine Glucose (UA) Negative, Urine Ketones Negative, Urine Blood Negative, Urine Nitrate Negative, Urine Bilirubin Negative, Urine Urobilinogen Normal, Ur Leukocyte Esterase Negative, Urine RBC None seen, Urine WBC None seen, Ur Epithelial Cells Trace, Urine Bacteria 1+ H, Hyaline Casts Trace, Fine Granular Casts Trace, Urine Culture Comments No culture indicated 02/27/19 05:15: WBC 19.7 H, RBC 3.39 L, Hgb 10.5 L, Hct 31.5 L, MCV 92.9, MCH 31.0, MCHC 33.3, RDW 12.6, Plt Count 289, MPV 9.9, Immature Gran % (Auto) 1.00 H, Immature Gran # (Auto) 0.19 H, Neutrophils % 88.8 H, Lymphocytes % 6.0 L, Monocytes % 3.9, Eosinophils % 0.2, Basophils % 0.1, Nucleated RBC % 0.0, Neutrophils # 17.5 H, Lymphocytes # 1.19 L, Monocytes # 0.8, Eosinophils # 0.0, Absolute Basophils 0.0 02/27/19 05:15: Sodium 143 H, Plasma Sodium 143 H, Potassium 4.7 H D, Chloride 108 H, Carbon Dioxide 24.7, Anion Gap 15.0 H, BUN 22, Creatinine 1.29, Est GFR (Non-Af Amer) 60 D, BUN/Creatinine Ratio 17.1, Random Glucose 107, Calcium 7.8 L, Calcium Adj for Albumin 9.0, Total Bilirubin 0.5, AST 29, ALT 50, Alkaline Phosphatase 108, Total Protein 5.5 L, Albumin 2.1 L 02/28/19 05:08: WBC 13.9 H D, RBC 3.46 L, Hgb 10.7 L, Hct 32.2 L, MCV 93.1, MCH 30.9, MCHC 33.2, RDW 12.6, Plt Count 309, MPV 9.9, Immature Gran % (Auto) 1.40 H, Immature Gran # (Auto) 0.20 H, Neutrophils % 83.2 H, Lymphocytes % 10.3 L, Monocytes % 4.9, Eosinophils % 0.1, Basophils % 0.1, Nucleated RBC % 0.0, Neutrophils # 11.6 H, Lymphocytes # 1.43 L, Monocytes # 0.7, Eosinophils # 0.0, Absolute Basophils 0.0 02/28/19 05:08: Sodium 143 H, Plasma Sodium 143 H, Potassium 4.4, Chloride 107 H, Carbon Dioxide 26.3, Anion Gap 14.1 H, BUN 16, Creatinine 1.02, Est GFR (Non- Af Amer) 79 D, BUN/Creatinine Ratio 15.7, Random Glucose 112 H, Calcium 8.1, Calcium Adj for Albumin 9.2, Total Bilirubin 0.2, AST 28, ALT 52, Alkaline Phosphatase 113, Total Protein 5.7 L, Albumin 2.2 L Discharge Location: Home Disposition: Home self-care Condition: Good Discharge Activity: Activity as tolerated Discharge Diet: General/regular food Referrals: Sha Steven MD [Primary Care Provider] - Problem Oriented Discharge Instructions to Patient/Family: Community-Acquired Pneumonia, Adult, [place] Additional Patient Instructions (free text): Call if you have problems or questions. Gradually increase activity. See me in 5 days. Off work 5 day. Repeat blood work in 5 day. Follow up appointment with Dr. Steven on 03/04/19 at 9:45am. Prescriptions (Any new or edited meds): Levofloxacin [Levaquin] 750 mg PO DAILY #7 tab Complete Home Medications List: Complete Home Medication List: Levothyroxine Sodium [Synthroid] 137 mcg PO DAILY 04/25/15 Levofloxacin [Levaquin] 750 mg PO DAILY #7 tab 02/28/19 Levofloxacin [Levaquin] 750 mg PO DAILY@1100 tab 02/28/19 hydrocodone 5 mg-acetaminophen 325 mg tablet 1 tab PO TID PRN #30 tab 02/28/19 Amb Orders for Discharge: Basic Metabolic Panel Time Frame: 3 Days, Location: Laboratory CBC Time Frame: 3 Days, Location: Laboratory Iron & Iron Binding Capacity Time Frame: 3 Days, Location: Laboratory RBC Folate Time Frame: 3 Days, Location: Laboratory Soluble Transferrin Receptor Time Frame: 3 Days, Location: Laboratory SPE W/[place] Lambda Light Chain Time Frame: 3 Days, Location: Laboratory
== END 2019-02-28 10:25 | disposition home or self-care (01) | DRG 194 ==
LOC: ER 15:23 → MS 17:36
PROVIDERS: ADMIT Family Medicine; ATTEND Allergy & Immunology
DX: I95.89 Other hypotension; E03.9 Hypothyroidism, unspecified; R53.1 Weakness; D72.828 Other elevated white blood cell count; E86.1 Hypovolemia; N17.9 Acute kidney failure, unspecified; D12.6 Benign neoplasm of colon, unspecified; Z87.891 Personal history of nicotine dependence; I95.9 Hypotension, unspecified; E78.5 Hyperlipidemia, unspecified; E88.09 Other disorders of plasma-protein metabolism, not elsewhere classified; J10.08 Influenza due to other identified influenza virus with other specified pneumonia
CPT/HCPCS: 36415; 71020; 71046; 80050; 80053; 81001; 83605; 84484; 85025; 87040; 87070; 93005; 96360; 96361; 99285